=== PATIENT | male | born 1975 | race Caucasian/White ===

== ENCOUNTER 2024-03-11 17:23 | Emergency (ER) | payer MEDICAID ==
[2024-03-11] MEDS: Diphtheria,Pertussis(Acell),Tetanus Vaccine 0.5 ML Syringe IM ONE (18:39)
[2024-03-11] MEDS: Doxycycline Monohydrate 100 MG Cap PO ONE (19:27)
[2024-03-11] MEDS: Cephalexin 500 MG Cap PO ONE (19:27)
== END 2024-03-11 19:35 | disposition home or self-care (01) ==
LOC: JD.ED 17:23
DX: S61.212A Laceration without foreign body of right middle finger without damage to nail, initial encounter (principal); L08.9 Local infection of the skin and subcutaneous tissue, unspecified; Z79.899 Other long term (current) drug therapy; Z23 Encounter for immunization; W26.8XXA Contact with other sharp object(s), not elsewhere classified, initial encounter
CPT/HCPCS: 73140; 87070; 87075; 87205; 90471; 90715; 99283; A9270; 87077; 87186